=== PATIENT | female | born 1940 | race Caucasian/White ===

== ENCOUNTER 2019-01-24 18:54 | Emergency (ER) | payer MEDICARE ==
[~2019-01-24] VITALS: Ht 147.3 cm; Wt 36.3 kg
[2019-01-24] MEDS ORDERED: IV RINGERS SOLUTION,LACTATED 1,000 ML IV SCH (19:05)
--- NOTE | 2019-01-24 19:05 | ED.ADGEN ---
Past History Past Medical History: Cancer, COPD Past Surgical History: Colectomy, Other Smoking: Cigarettes Adult General Chief Complaint Chief Complaint ".. I ve been sick for about a week.. probably got it from my son.. he's been hacking.. but I do smoke.. and I have anal cancer...and just started IV chemo therapy a little over a week ago.. maybe two weeks.. .. I failed radiation and surgery.. I see Dr. Hudson.. and I seen them today.. the gave me Iron IV and did a chest x-ray.. .. Office called juliette and said it looked like pneumonia... and said go to Emergency Room...." HPI HPI Patient is a 78 year old female who presents with above hx and complaints of increased dyspnea with cough. Patient has been exposed to son who has been sick with a respiratory infection for the past week. Patient has noted in the past week she's had increased cough with sputum production. Patient does smoke. Patient recently completed a course of chemotherapy for her anal cancer 2 weeks ago. . Patient seen in office today and did have a chest x-ray which reportedly shows possible pneumonia . The patient was called and advised to go to the emergency department Pt. does continue to smoke and hx of COPD. Pt. does not use oxygen. . Patient denies any travel. Patient diagnosis of renal cancer approximately 2 years ago. Has undergone radiation, surgery, and now chemotherapy. Patient follows with [facility], Dr. Prabhakar surgery, Dr. Sutherland maintenance. Review of Systems Review of Systems Constitutional: Denies fever or chills [] Eyes: Denies change in visual acuity, redness, or eye pain [] HENT: Denies nasal congestion or sore throat [] Respiratory:Complaints of cough and shortness of breath [] Cardiovascular: No additional information not addressed in HPI [] GI: Denies abdominal pain, nausea, vomiting, bloody stools or diarrhea [] : Denies dysuria or hematuria [] Musculoskeletal: Denies back pain or joint pain [] Integument: Denies rash or skin lesions [] Neurologic: Denies headache, focal weakness or sensory changes [] Endocrine: Denies polyuria or polydipsia [] All other systems were reviewed and found to be within normal limits, except as documented in this note. Family History Family History Non-contributory Current Medications Current Medications Current Medications Medications (Trade) Dose Ordered Sig/Nataly Start Time Stop Time Status Last Admin Dose Admin Albuterol/ Ipratropium (Duoneb) 3 ml 1X ONCE 01/24/19 19:15 01/24/19 19:17 DC 01/24/19 20:12 3 ML Aspirin (Children'S Aspirin) 324 mg 1X ONCE 01/24/19 19:15 01/24/19 19:17 DC 01/24/19 19:34 324 MG Azithromycin (Zithromax) 500 mg STK-MED ONCE 01/24/19 19:36 01/24/19 19:37 DC Azithromycin 500 mg/Sodium Chloride 250 ml @ 250 mls/hr 1X ONCE 01/24/19 19:30 01/24/19 20:29 DC 01/24/19 19:40 250 MLS/HR Ceftriaxone Sodium 1 gm/ Sodium Chloride 50 ml @ 100 mls/hr 1X ONCE 01/24/19 19:30 01/24/19 19:59 DC 01/24/19 19:35 100 MLS/HR Ceftriaxone Sodium (Rocephin) 1 gm STK-MED ONCE 01/24/19 19:23 01/24/19 19:24 DC Erythromycin (Romycin) 0.25 inch 1X ONCE 01/25/19 05:15 01/25/19 05:16 DC 01/24/19 23:30 0.25 INCH Heparin Sodium (Porcine) (Heparin Sodium) 1,000 unit PRN Q6HRS PRN 01/24/19 20:45 01/25/19 00:06 DC Heparin Sodium/ Dextrose 500 ml @ 0 mls/hr CONT PRN 01/24/19 20:45 01/25/19 00:06 DC 01/24/19 22:55 12.8 MLS/HR Iohexol (Omnipaque 350 Mg/ml) 100 ml 1X ONCE 01/24/19 21:45 01/24/19 21:46 DC 01/24/19 22:24 100 ML Ketamine HCl 250 mg 1X ONCE 01/25/19 05:15 01/25/19 05:16 DC 01/24/19 23:50 250 MG Lactated Ringer's 1,000 ml @ 1,000 mls/hr 1X ONCE 01/24/19 21:45 01/24/19 22:44 DC 01/24/19 22:00 1,000 MLS/HR Lorazepam (Ativan Inj) 1 mg 1X ONCE 01/24/19 20:30 01/24/19 20:31 DC 01/24/19 20:25 1 MG Methylprednisolone Sodium Succinate (SOLU-Medrol 125MG VIAL) 125 mg 1X ONCE 01/24/19 19:30 01/24/19 19:31 DC 01/24/19 19:35 125 MG Midazolam HCl (Versed) 5 mg 1X ONCE 01/24/19 21:45 01/24/19 21:46 DC 01/24/19 20:47 5 MG Morphine Sulfate (Morphine 2mg Syringe) 2 mg 1X ONCE 01/24/19 20:30 01/24/19 20:30 DC 01/24/19 20:26 2 MG Morphine Sulfate (Morphine 4mg Syringe) 2 mg 1X ONCE 01/24/19 20:30 01/24/19 20:31 DC Norepinephrine Bitartrate (Levophed) 4 mg STK-MED ONCE 01/24/19 21:45 01/24/19 21:46 DC Norepinephrine Bitartrate 8 mg/ Sodium Chloride 258 ml @ 1.93 mls/hr CONT PRN 01/24/19 22:00 01/25/19 00:06 DC 01/24/19 21:55 3.87 MLS/HR Ondansetron HCl (Zofran) 4 mg 1X ONCE 01/24/19 20:15 01/24/19 20:21 DC 01/24/19 20:14 4 MG Propofol 50 ml @ 0 mls/hr 1X ONCE 01/24/19 22:00 01/24/19 22:04 DC 01/24/19 20:59 2.4 MLS/HR Sodium Chloride 250 ml @ As Directed STK-MED ONCE 01/24/19 21:44 01/24/19 21:45 DC Succinylcholine Chloride (Anectine) 100 mg 1X ONCE 01/24/19 21:30 01/24/19 21:33 DC 01/24/19 20:52 100 MG Vancomycin HCl (Vancomycin) 1 gm STK-MED ONCE 01/24/19 19:36 01/24/19 19:37 DC Vancomycin HCl 1 gm/Sodium Chloride 250 ml @ 250 mls/hr 1X ONCE 01/24/19 19:30 01/24/19 20:29 DC 01/24/19 19:40 250 MLS/HR Allergies Allergies Allergies Coded Allergies Type Severity Reaction Last Updated Verified No Known Drug Allergies 01/24/19 No Physical Exam Physical Exam Constitutional: in acute distress, ill in appearance. [] HENT: Normocephalic, atraumatic, bilateral external ears normal, oropharynx moist, no oral exudates, nose normal. [] Eyes: PERRLA, EOMI, conjunctiva normal, no discharge. [] Neck: Normal range of motion, no tenderness, supple, no stridor. [] Cardiovascular:Tachycardia Heart rate regular rhythm, no murmur [] Lungs & Thorax: Bilateral breath sounds equal apexes with scattered wheezes and rhonchi on auscultation [] Old port on Lt. ant. chest wall. Abdomen: Bowel sounds normal, soft, no tenderness, no masses, no pulsatile masses. Old scars. Skin: Warm, dry, no erythema, no rash. Poor turgor. Back: No tenderness, no CVA tenderness. [] Extremities: No tenderness, no cyanosis, no clubbing, ROM intact, no edema. No obvious cording. Arthritic changes. Neurologic: Alert and oriented X 3, moves all ext. and has distal sensory function, no gross focal deficits noted. [] Psychologic: Affect anxious, judgement normal, mood normal. [] Current Patient Data Vital Signs Vital Signs Date Time Temp Pulse Resp B/P (MAP) Pulse Ox O2 Delivery O2 Flow Rate FiO2 01/24/19 23:30 80 18 107/62 (77) 98 Ventilator 01/24/19 20:31 15.0 01/24/19 19:00 100.2 Lab Results Laboratory Tests Test 01/24/19 19:05 01/24/19 19:10 01/24/19 19:17 Urine Collection Type Unknown Urine Color Heather Urine Clarity Hazy Urine pH 7.0 Urine Specific Boone 1.015 Urine Protein 30 mg/dl (NEG-TRACE) Urine Glucose (UA) Neg mg/dL (NEG) Urine Ketones (Stick) Neg mg/dL (NEG) Urine Blood Neg (NEG) Urine Nitrite Neg (NEG) Urine Bilirubin Neg (NEG) Urine Urobilinogen Dipstick 0.2 mg/dL (0.2 mg/dL) Urine Leukocyte Esterase Neg (NEG) Urine RBC 0 /HPF (0-2) Urine WBC 0 /HPF (0-4) Urine Squamous Epithelial Cells Occ /LPF Urine Bacteria 0 /HPF (0-FEW) Urine Hyaline Casts Occ /HPF Urine Mucus Slight /LPF White Blood Count 3.2 x10^3/uL (4.0-11.0) L Red Blood Count 3.07 x10^6/uL (3.50-5.40) L Hemoglobin 7.4 g/dL (12.0-15.5) L Hematocrit 23.3 % (36.0-47.0) L Mean Corpuscular Volume 76 fL (79-100) L Mean Corpuscular Hemoglobin 24 pg (25-35) L Mean Corpuscular Hemoglobin Concent 32 g/dL (31-37) Red Cell Distribution Width 19.6 % (11.5-14.5) H Platelet Count 339 x10^3/uL (140-400) Neutrophils (%) (Auto) % (31-73) Lymphocytes (%) (Auto) % (24-48) Monocytes (%) (Auto) % (0-9) Eosinophils (%) (Auto) % (0-3) Basophils (%) (Auto) % (0-3) Neutrophils # (Auto) x10^3uL (1.8-7.7) Lymphocytes # (Auto) x10^3/uL (1.0-4.8) Monocytes # (Auto) x10^3/uL (0.0-1.1) Eosinophils # (Auto) x10^3/uL (0.0-0.7) Basophils # (Auto) x10^3/uL (0.0-0.2) Segmented Neutrophils % 80 % (35-66) H Band Neutrophils % 1 % (0-9) Lymphocytes % 13 % (24-48) L Monocytes % 3 % (0-10) Eosinophils % 1 % (0-5) Basophils % 2 % (0-3) Platelet Estimate Adequate (ADEQUATE) Polychromasia Slight Hypochromasia Mod Anisocytosis Slight Target Cells Occ Prothrombin Time 11.4 SEC (9.4-11.4) Prothrombin Time INR 1.2 (0.9-1.1) H PTT 31 SEC (23-33) D-Dimer (Paola) 1.16 mg/L (0.00-0.50) H Sodium Level 137 mmol/L (136-145) Potassium Level 3.4 mmol/L (3.5-5.1) L Chloride Level 99 mmol/L (98-107) Carbon Dioxide Level 30 mmol/L (21-32) Anion Gap 8 (6-14) Blood Urea Nitrogen 14 mg/dL (7-20) Creatinine 0.6 mg/dL (0.6-1.0) Estimated GFR (Cockcroft-Gault) 97.2 Glucose Level 112 mg/dL (70-99) H Calcium Level 8.3 mg/dL (8.5-10.1) L Magnesium Level 1.7 mg/dL (1.8-2.4) L Total Bilirubin 0.3 mg/dL (0.2-1.0) Direct Bilirubin 0.1 mg/dL (0.0-0.2) Aspartate Amino Transferase (AST) 23 U/L (15-37) Alanine Aminotransferase (ALT) 20 U/L (14-59) Alkaline Phosphatase 178 U/L (46-116) H Creatine Kinase 39 U/L (26-192) Troponin I Quantitative < 0.017 ng/mL (0-0.055) OC-Mmx-E-Type Natriuretic Peptide 986 pg/mL (0-449) H Total Protein 7.2 g/dL (6.4-8.2) Albumin 2.5 g/dL (3.4-5.0) L Lipase 39 U/L (73-393) L Blood pH 7.44 (7.35-7.45) Blood Gas PCO2 35 mmHg (35-45) Blood Gas PO2 57 mmHg (71-100) L Blood Gas HCO3 24 mmol/L (22-26) Arterial Bld O2 Saturation (Calc) 89 % (92-99) L FiO2 28 % EKG EKG My interpretation EKG shows a sinus tachycardia 1 bpm. There is leftward axis. There bimodal P-wave's. Does have findings of LVH. There is a strain pattern. No findings acute STEMI of contralateral changes. There is baseline artifact and V3.[] Radiology/Procedures Radiology/Procedures My interpretation of early chest x-ray shows hilar adenopathy. COPD changes. Bilateral pleural effusions. Cardiomegaly with some mild cephalization Has findings of left port. My interpretation of chest x-ray tonight she shows COPD, borderline cardiac silhouette, increased cephalization, bilateral pleural effusions, left port. Right IJ central line , no pneumothorax. ET in trachea. Bilateral pleural effusions. Perihilar infiltrates and adenopathy. See formal report when available [][address] [address] IMAGING REPORT Signed PATIENT: PETRONA FANG ACCOUNT: [id number] : 1940 LOCATION: ER AGE: 78 SEX: F EXAM STATUS: REG ER ORD. PHYSICIAN: MORALES KLINE MD REASON: Dyspnea, hypoxia, pleuretic, hx ca PROCEDURE: CT ANGIOGRAPHY CHEST CTA scan of the Chest with Contrast (Pulmonary Embolism protocol) 01/24/2019 Clinical History: Shortness of breath. Hypoxia. Technique: After the intravenous administration of 90 cc of Omnipaque 300, contiguous, 0.625 mm axial sections were obtained through the chest. 3 mm axial and 3D MIP coronal and sagittal reconstructed images were obtained. Findings: Comparison is made to a portable chest radiograph performed earlier today. The ET tube, NG tube, right internal jugular central venous catheter and left subclavian Kukdvu-i-Nxsu type catheter are unchanged position. No filling defect is seen within the major branches of either pulmonary artery. There is no CT evidence of pulmonary embolism. The heart is mildly enlarged. Atherosclerotic calcification of the thoracic aorta is seen. The thoracic aorta is tortuous but tapers normally. There are small bilateral pleural effusions, left greater than right. Perihilar infiltrates are seen scattered throughout both lungs. No pneumothorax is seen. Impression: There is no CT evidence of pulmonary embolism. Electronically signed by: Niall Owen MD (01/24/2019 11:33 PM) [facility] DICTATED AND SIGNED BY: NILAL OWEN MD DATE: 01/24/19 0788 CC: MORALES KLINE MD; JIMMIE FERNANDEZ MD ~ Course & Med Decision Making Course & Med Decision Making Pertinent Labs and Imaging studies reviewed. (See chart for details) . Procedure Note: Intubation- Mallampati score II. The patient unable to tolerate nasal cannula or oxygen via mask. Patient refused BiPAP. Patient did agree to intubation if she was sedated. Patient given for schooling 100, Versed. 5 mg, and there were then used for sedation. Use of videoscope placed a 7.0 ET at 22 cm,. Patient had increased sats immediately. Has CO2 change. Patient started on 100% and Titrating volume for pressures. PEEP 6. OG replaced with return gastric material. Procedure note: Central line placement- need for multiple ports and pressure meds- right subclavian and neck prepped with Betadine. Sterile drape. Down's mask and gloves. Inserted right IJ line by Seldinger technique. Return of blood from all 3 ports. Postinjection shows adequate placement. OpSite and Bio patch placed. Discussed presentation, testing and tx. plan with Dr. Garcia- he will accept pt in transfer to [facility] 2000 hrs. Still awaiting bed assignment [facility] 2230 Pt. left ED aprox 0015 . Critical care time 90 minutes not counting procedures. [] Final Impression Final Impression 1. Dyspnea[]-Respiratory Failure-Hypoxia 2. Anal Cancer- Dx 2 yrs, Radiation, Surgery and now Chemotherapy (Chemo Tx 2 weeks ago) 3. COPD 4. Pneumonia 5. Anemia -Hgb 7.4, with microcytic hypochromic indices. 6. Leukopenia 3.2 7. Mild hypo-kalemia 3/4 8. Hypo-magnesium 1.7 9. CHF-diastolic dysfunction BNP 986 10. Malnutrition Alb. 2.5 11. Elevated D-dimer 1.16 Dragon Disclaimer Dragon Disclaimer This electronic medical record was generated, in whole or in part, using a voice recognition dictation system. Discharge Summary Visit Information Final Diagnosis Problems Medical Problems: (1) Dyspnea Status: Acute (2) Respiratory failure Status: Acute Brief Hospital Course Allergies Allergies Coded Allergies Type Severity Reaction Last Updated Verified No Known Drug Allergies 01/24/19 No Vital Signs Vital Signs Date Time Temp Pulse Resp B/P (MAP) Pulse Ox O2 Delivery O2 Flow Rate FiO2 01/24/19 23:30 80 18 107/62 (77) 98 Ventilator 01/24/19 20:31 15.0 01/24/19 19:00 100.2 Lab Results Laboratory Tests Test 01/24/19 19:05 01/24/19 19:10 01/24/19 19:17 Urine Collection Type Unknown Urine Color Heather Urine Clarity Hazy Urine pH 7.0 Urine Specific Boone 1.015 Urine Protein 30 mg/dl (NEG-TRACE) Urine Glucose (UA) Neg mg/dL (NEG) Urine Ketones (Stick) Neg mg/dL (NEG) Urine Blood Neg (NEG) Urine Nitrite Neg (NEG) Urine Bilirubin Neg (NEG) Urine Urobilinogen Dipstick 0.2 mg/dL (0.2 mg/dL) Urine Leukocyte Esterase Neg (NEG) Urine RBC 0 /HPF (0-2) Urine WBC 0 /HPF (0-4) Urine Squamous Epithelial Cells Occ /LPF Urine Bacteria 0 /HPF (0-FEW) Urine Hyaline Casts Occ /HPF Urine Mucus Slight /LPF White Blood Count 3.2 x10^3/uL (4.0-11.0) Red Blood Count 3.07 x10^6/uL (3.50-5.40) Hemoglobin 7.4 g/dL (12.0-15.5) Hematocrit 23.3 % (36.0-47.0) Mean Corpuscular Volume 76 fL (79-100) Mean Corpuscular Hemoglobin 24 pg (25-35) Mean Corpuscular Hemoglobin Concent 32 g/dL (31-37) Red Cell Distribution Width 19.6 % (11.5-14.5) Platelet Count 339 x10^3/uL (140-400) Neutrophils (%) (Auto) % (31-73) Lymphocytes (%) (Auto) % (24-48) Monocytes (%) (Auto) % (0-9) Eosinophils (%) (Auto) % (0-3) Basophils (%) (Auto) % (0-3) Neutrophils # (Auto) x10^3uL (1.8-7.7) Lymphocytes # (Auto) x10^3/uL (1.0-4.8) Monocytes # (Auto) x10^3/uL (0.0-1.1) Eosinophils # (Auto) x10^3/uL (0.0-0.7) Basophils # (Auto) x10^3/uL (0.0-0.2) Segmented Neutrophils % 80 % (35-66) Band Neutrophils % 1 % (0-9) Lymphocytes % 13 % (24-48) Monocytes % 3 % (0-10) Eosinophils % 1 % (0-5) Basophils % 2 % (0-3) Platelet Estimate Adequate (ADEQUATE) Polychromasia Slight Hypochromasia Mod Anisocytosis Slight Target Cells Occ Prothrombin Time 11.4 SEC (9.4-11.4) Prothromb Time International Ratio 1.2 (0.9-1.1) Activated Partial Thromboplast Time 31 SEC (23-33) D-Dimer (Paola) 1.16 mg/L (0.00-0.50) Sodium Level 137 mmol/L (136-145) Potassium Level 3.4 mmol/L (3.5-5.1) Chloride Level 99 mmol/L (98-107) Carbon Dioxide Level 30 mmol/L (21-32) Anion Gap 8 (6-14) Blood Urea Nitrogen 14 mg/dL (7-20) Creatinine 0.6 mg/dL (0.6-1.0) Estimated GFR (Cockcroft-Gault) 97.2 Glucose Level 112 mg/dL (70-99) Calcium Level 8.3 mg/dL (8.5-10.1) Magnesium Level 1.7 mg/dL (1.8-2.4) Total Bilirubin 0.3 mg/dL (0.2-1.0) Direct Bilirubin 0.1 mg/dL (0.0-0.2) Aspartate Amino Transf (AST/SGOT) 23 U/L (15-37) Alanine Aminotransferase (ALT/SGPT) 20 U/L (14-59) Alkaline Phosphatase 178 U/L (46-116) Creatine Kinase 39 U/L (26-192) Troponin I Quantitative < 0.017 ng/mL (0-0.055) TE-Dva-S-Type Natriuretic Peptide 986 pg/mL (0-449) Total Protein 7.2 g/dL (6.4-8.2) Albumin 2.5 g/dL (3.4-5.0) Lipase 39 U/L (73-393) Blood Gas pH 7.44 (7.35-7.45) Blood Gas PCO2 35 mmHg (35-45) Blood Gas PO2 57 mmHg (71-100) Blood Gas HCO3 24 mmol/L (22-26) Arterial Bld O2 Saturation (Calc) 89 % (92-99) FiO2 28 % Brief Hospital Course Ms. Fang is a 78 old female who presented with acute hypoxic respiratory failure- Transfer to [facility]- Dr. Garcia. Discharge Information Condition at Discharge: Improved Disposition/Orders: D/C to Another Facility Dischare Medications Current Medications Aspirin (Children'S Aspirin) 324 mg 1X ONCE PO Last administered on 01/24/19at 19:34; Admin Dose 324 MG; Start 01/24/19 at 19:15; Stop 01/24/19 at 19:17; Status DC Lactated Ringer's 1,000 ml @ 100 mls/hr Q10H IV Last administered on 01/24/19at 21:37; Admin Dose 100 MLS/HR; Start 01/24/19 at 19:05; Stop 01/25/19 at 00:06; Status DC Albuterol/ Ipratropium (Duoneb) 3 ml 1X ONCE NEB Last administered on 01/24/19at 20:12; Admin Dose 3 ML; Start 01/24/19 at 19:15; Stop 01/24/19 at 19:17; Status DC Methylprednisolone Sodium Succinate (SOLU-Medrol 125MG VIAL) 125 mg 1X ONCE IV Last administered on 01/24/19at 19:35; Admin Dose 125 MG; Start 01/24/19 at 19:30; Stop 01/24/19 at 19:31; Status DC Ceftriaxone Sodium 1 gm/ Sodium Chloride 50 ml @ 100 mls/hr 1X ONCE IV Last administered on 01/24/19at 19:35; Admin Dose 100 MLS/HR; Start 01/24/19 at 19:30; Stop 01/24/19 at 19:59; Status DC Azithromycin 500 mg/Sodium Chloride 250 ml @ 250 mls/hr 1X ONCE IV Last administered on 01/24/19at 19:40; Admin Dose 250 MLS/HR; Start 01/24/19 at 19:30; Stop 01/24/19 at 20:29; Status DC Lactated Ringer's 1,000 ml @ 1,000 mls/hr 1X ONCE IV Last administered on 01/24/19at 19:34; Admin Dose 1,000 MLS/HR; Start 01/24/19 at 19:30; Stop 01/24/19 at 20:29; Status DC Vancomycin HCl 1 gm/Sodium Chloride 250 ml @ 250 mls/hr 1X ONCE IV Last administered on 01/24/19at 19:40; Admin Dose 250 MLS/HR; Start 01/24/19 at 19:30; Stop 01/24/19 at 20:29; Status DC Ceftriaxone Sodium (Rocephin) 1 gm STK-MED ONCE .ROUTE ; Start 01/24/19 at 19:23; Stop 01/24/19 at 19:24; Status DC Sodium Chloride 250 ml @ As Directed STK-MED ONCE .ROUTE ; Start 01/24/19 at 19:36; Stop 01/24/19 at 19:37; Status DC Azithromycin (Zithromax) 500 mg STK-MED ONCE IV ; Start 01/24/19 at 19:36; Stop 01/24/19 at 19:37; Status DC Sodium Chloride 250 ml @ As Directed STK-MED ONCE .ROUTE ; Start 01/24/19 at 19:36; Stop 01/24/19 at 19:37; Status DC Vancomycin HCl (Vancomycin) 1 gm STK-MED ONCE .ROUTE ; Start 01/24/19 at 19:36; Stop 01/24/19 at 19:37; Status DC Ondansetron HCl (Zofran) 4 mg 1X ONCE IV Last administered on 01/24/19at 20:14; Admin Dose 4 MG; Start 01/24/19 at 20:15; Stop 01/24/19 at 20:21; Status DC Lorazepam (Ativan Inj) 2 mg STK-MED ONCE .ROUTE ; Start 01/24/19 at 20:15; Stop 01/24/19 at 20:16; Status DC Lorazepam (Ativan Inj) 1 mg 1X ONCE IV ; Start 01/24/19 at 20:30; Stop 01/24/19 at 20:31; Status DC Heparin Sodium (Porcine) (Heparin Sodium) 4,000 unit 1X ONCE IV Last administered on 01/24/19at 20:29; Admin Dose 4,000 UNIT; Start 01/24/19 at 20:30; Stop 01/24/19 at 20:32; Status DC Lorazepam (Ativan Inj) 1 mg 1X ONCE IV Last administered on 01/24/19at 20:25; Admin Dose 1 MG; Start 01/24/19 at 20:30; Stop 01/24/19 at 20:31; Status DC Morphine Sulfate (Morphine 2mg Syringe) 2 mg 1X ONCE IV Last administered on 01/24/19at 20:26; Admin Dose 2 MG; Start 01/24/19 at 20:30; Stop 01/24/19 at 20:30; Status DC Morphine Sulfate (Morphine 4mg Syringe) 4 mg STK-MED ONCE .ROUTE ; Start 01/24/19 at 20:22; Stop 01/24/19 at 20:23; Status DC Morphine Sulfate (Morphine 4mg Syringe) 2 mg 1X ONCE IV ; Start 01/24/19 at 20:30; Stop 01/24/19 at 20:31; Status DC Heparin Sodium (Porcine) (Heparin Sodium) 2,700 unit 1X ONCE IV ; Start 01/24/19 at 20:30; Stop 01/24/19 at 20:32; Status DC Heparin Sodium/ Dextrose 500 ml @ 0 mls/hr CONT PRN IV SEE I/O RECORD; Start 01/24/19 at 20:45; Stop 01/24/19 at 20:47; Status DC Heparin Sodium/ Dextrose 500 ml @ 0 mls/hr CONT PRN IV SEE I/O RECORD Last administered on 01/24/19at 22:55; Admin Dose 12.8 MLS/HR; Start 01/24/19 at 20:45; Stop 01/25/19 at 00:06; Status DC Heparin Sodium (Porcine) (Heparin Sodium) 2,000 unit PRN Q6HRS PRN IV FOLLOW PROTOCOL GUIDELINES; Start 01/24/19 at 20:45; Stop 01/25/19 at 00:06; Status DC Heparin Sodium (Porcine) (Heparin Sodium) 1,000 unit PRN Q6HRS PRN IV FOLLOW PROTOCOL GUIDELINES; Start 01/24/19 at 20:45; Stop 01/25/19 at 00:06; Status DC Propofol 100 ml @ As Directed STK-MED ONCE IV ; Start 01/24/19 at 20:46; Stop 01/24/19 at 20:47; Status DC Succinylcholine Chloride (Anectine) 200 mg STK-MED ONCE .ROUTE ; Start 01/24/19 at 20:47; Stop 01/24/19 at 20:48; Status DC Ketamine HCl 250 mg 1X ONCE IV Last administered on 01/24/19at 21:15; Admin Dose 250 MG; Start 01/24/19 at 21:30; Stop 01/24/19 at 21:33; Status DC Succinylcholine Chloride (Anectine) 100 mg 1X ONCE IV Last administered on 01/24/19at 20:52; Admin Dose 100 MG; Start 01/24/19 at 21:30; Stop 01/24/19 at 21:33; Status DC Midazolam HCl (Versed) 5 mg 1X ONCE IV Last administered on 01/24/19at 20:47; Admin Dose 5 MG; Start 01/24/19 at 21:45; Stop 01/24/19 at 21:46; Status DC Iohexol (Omnipaque 350 Mg/ml) 100 ml 1X ONCE IV Last administered on 01/24/19at 22:24; Admin Dose 100 ML; Start 01/24/19 at 21:45; Stop 01/24/19 at 21:46; Status DC Lactated Ringer's 1,000 ml @ 1,000 mls/hr 1X ONCE IV Last administered on 01/24/19at 22:00; Admin Dose 1,000 MLS/HR; Start 01/24/19 at 21:45; Stop 01/24/19 at 22:44; Status DC Norepinephrine Bitartrate (Levophed) 4 mg STK-MED ONCE IV ; Start 01/24/19 at 21:41; Stop 01/24/19 at 21:42; Status DC Sodium Chloride 250 ml @ As Directed STK-MED ONCE .ROUTE ; Start 01/24/19 at 21:44; Stop 01/24/19 at 21:45; Status DC Norepinephrine Bitartrate (Levophed) 4 mg STK-MED ONCE IV ; Start 01/24/19 at 21:45; Stop 01/24/19 at 21:46; Status DC Propofol 50 ml @ 0 mls/hr 1X ONCE IV Last administered on 01/24/19at 20:59; Admin Dose 2.4 MLS/HR; Start 01/24/19 at 22:00; Stop 01/24/19 at 22:04; Status DC Norepinephrine Bitartrate 8 mg/ Sodium Chloride 258 ml @ 1.93 mls/hr CONT PRN IV SEE I/O RECORD Last administered on 01/24/19at 21:55; Admin Dose 3.87 MLS/HR; Start 01/24/19 at 22:00; Stop 01/25/19 at 00:06; Status DC Erythromycin (Romycin) 0.25 inch 1X ONCE OU ; Start 01/25/19 at 00:15; Stop 01/25/19 at 00:15; Status DC Erythromycin (Romycin) 1 inch STK-MED ONCE .ROUTE ; Start 01/25/19 at 00:00; Stop 01/25/19 at 00:02; Status DC Ketamine HCl 250 mg 1X ONCE IV Last administered on 01/24/19at 23:50; Admin Dose 250 MG; Start 01/25/19 at 05:15; Stop 01/25/19 at 05:16; Status DC Erythromycin (Romycin) 0.25 inch 1X ONCE OU Last administered on 01/24/19at 23:30; Admin Dose 0.25 INCH; Start 01/25/19 at 05:15; Stop 01/25/19 at 05:16; Status DC Dragon Disclaimer This chart was dictated in whole or in part using Voice Recognition software in a busy, high-work load, and often noisy Emergency Department environment. It may contain unintended and wholly unrecognized errors or omissions. MORALES KLINE MD January 24, 2019 19:05
[2019-01-24] MEDS ORDERED: ASPIRIN 81 MG TAB.CHEW PO ONE (19:15)
[2019-01-24] MEDS ORDERED: IPRATRPIUM/ALBUTEROL 0.5/2.5MG 3 ML NEBU. NEB ONE (19:15)
[2019-01-24] MEDS ORDERED: cefTRIAXone SODIUM 1 GM VIAL ONE (19:23)
[2019-01-24] MEDS ORDERED: AZITHROMYCIN 500 MG in IV NORMAL SALINE 250ML 250 ML IV ONE (19:30)
[2019-01-24] MEDS ORDERED: methylPREDNISolone SOD SUCC PF 125 MG/2 ML VIAL. IV ONE (19:30)
[2019-01-24] MEDS ORDERED: IV RINGERS SOLUTION,LACTATED 1,000 ML IV ONE ×2 (19:30→21:45)
[2019-01-24] MEDS ORDERED: VANCOMYCIN 1 GM in IV NORMAL SALINE 250ML 250 ML IV ONE (19:30)
[2019-01-24] MEDS ORDERED: IV NORMAL SALINE 250ML 250 ML ONE ×3 (19:36→21:44)
[2019-01-24] MEDS ORDERED: VANCOMYCIN 1 GM VIAL. ONE (19:36)
[2019-01-24] MEDS ORDERED: AZITHROMYCIN 500 MG VIAL. IV ONE (19:36)
[2019-01-24 19:37] LABS: CLARITY,URINE HAZY; COLOR,URINE AMBER
[2019-01-24 19:38] LABS: BACTERIA,URINE 0 /HPF (0-FEW); BILIRUBIN,URINE NEG (NEG); GLUCOSE,URINE NEG (NEG); HYALINE CASTS, URINE OCC /HPF; NITRITE,URINE NEG (NEG); RBC,URINE 0 /HPF (0-2); SQUAMOUS EPITHELIAL CELL,UR OCC /LPF; UROBILINOGEN,URINE 0.2 mg/dL (0.2 mg/dL); WBC,URINE 0 /HPF (0-4)
[2019-01-24 19:39] LABS: HEMATOCRIT 23.3 % (36.0-47.0); HEMOGLOBIN 7.4 g/dL (12.0-15.5); MEAN CORPUSCULAR HEMOGLOBIN 24 pg (25-35); MEAN CORPUSCULAR HGB CONC 32 g/dL (31-37); MEAN CORPUSCULAR VOLUME 76 fL (79-100); PLATELET COUNT 339 x10^3/uL (140-400); RED BLOOD COUNT 3.07 x10^6/uL (3.50-5.40); RED CELL DISTRIBUTION WIDTH 19.6 % (11.5-14.5); WHITE BLOOD COUNT 3.2 x10^3/uL (4.0-11.0)
--- NOTE | 2019-01-24 19:48 | EKG ---
[address] [address] Test Date: 2019-01-24 Test Time: 19:24:09 Pat Name: PETRONA FANG Department: Room: Gender: F [employer]: : [id number] Requested By: MORALES KLINE Order Number: [id number] Reading MD: Measurements Intervals Delta Rate: 101 P: 75 MI: 118 QRS: -26 QRSD: 78 T: 74 QT: 320 QTc: 416 Interpretive Statements SINUS TACHYCARDIA LEFT ATRIAL ABNORMALITY LEFTWARD AXIS CONSIDER LEFT VENTRICULAR HYPERTROPHY QRS(T) CONTOUR ABNORMALITY CONSIDER ANTEROSEPTAL MYOCARDIAL DAMAGE T ABNORMALITY IN HIGH LATERAL LEADS ABNORMAL ECG RI6.01 No previous ECG available for comparison
[2019-01-24 19:49] LABS: BGAS PH 7.44 (7.35-7.45)
[2019-01-24 19:58] LABS: ALBUMIN 2.5 g/dL (3.4-5.0); CALCIUM 8.3 mg/dL (8.5-10.1); CREATININE 0.6 mg/dL (0.6-1.0); DIRECT BILIRUBIN 0.1 mg/dL (0.0-0.2); GFR 97.2; MAGNESIUM 1.7 mg/dL (1.8-2.4); POTASSIUM 3.4 mmol/L (3.5-5.1); TOTAL BILIRUBIN 0.3 mg/dL (0.2-1.0); TOTAL PROTEIN 7.2 g/dL (6.4-8.2)
[2019-01-24] MEDS ORDERED: ONDANSETRON PF 4 MG/2 ML VIAL. IV ONE (20:15)
[2019-01-24] MEDS ORDERED: MORPHINE SULFATE 4 MG/ML DISP.SYRIN. ONE (20:22)
[2019-01-24] MEDS ORDERED: HEPARIN for IV BOLUS 10,000 UNIT/10 ML VIAL. IV ONE ×2 (20:30)
[2019-01-24] MEDS ORDERED: MORPHINE SULFATE 2 MG/ML DISP.SYRIN. IV ONE (20:30)
[2019-01-24] MEDS ORDERED: MORPHINE SULFATE 4 MG/ML DISP.SYRIN. IV ONE (20:30)
[2019-01-24 20:40] LABS: % BANDS 1 % (0-9); % BASOS 2 % (0-3); % EOS 1 % (0-5); % LYMPHS 13 % (24-48); % MONOS 3 % (0-10); % SEGS 80 % (35-66)
[2019-01-24 20:41] LABS: ANISOCYTOSIS SLIGHT; HYPOCHROMIA MOD; PLT ESTIMATE ADEQUATE (ADEQUATE); POLYCHROMASIA SLIGHT; TARGET CELLS OCC
[2019-01-24] MEDS ORDERED: HEPARIN 25,000UTS/500ML PREMIX 500 ML IV PRN ×2 (20:45)
[2019-01-24] MEDS ORDERED: HEPARIN for IV BOLUS 10,000 UNIT/10 ML VIAL. IV PRN ×2 (20:45)
[2019-01-24] MEDS ORDERED: PROPOFOL 100 ML IV ONE (20:46)
[2019-01-24] MEDS ORDERED: SUCCINYLCHOLINE 200 MG/10 ML VIAL. ONE (20:47)
[2019-01-24] MEDS ORDERED: MIDAZOLAM HCL PF 5 MG/5 ML VIAL. ONE (21:00)
[2019-01-24] MEDS ORDERED: KETAMINE HCL 500 MG/10 ML VIAL. ONE (21:00)
[2019-01-24] MEDS ORDERED: PROPOFOL 10,000 MCG/ML (20ML) VIAL IV ONE (21:00)
[2019-01-24] MEDS ORDERED: SUCCINYLCHOLINE 200 MG/10 ML VIAL. IV ONE (21:30)
[2019-01-24] MEDS ORDERED: KETAMINE HCL 500 MG/10 ML VIAL. IV ONE (21:30)
[2019-01-24] MEDS ORDERED: NOREPINEPHRINE BITARTRATE 4 MG/4 ML VIAL. IV ONE ×2 (21:41→21:45)
[2019-01-24] MEDS ORDERED: MIDAZOLAM HCL PF 5 MG/5 ML VIAL. IV ONE (21:45)
[2019-01-24] MEDS ORDERED: IOHEXOL 350 MG/ML 100 ML VIAL. IV ONE (21:45)
[2019-01-24] MEDS ORDERED: NOREPINEPHRINE BITARTRATE 8 MG in IV NORMAL SALINE 250ML 250 ML IV PRN (22:00)
[2019-01-24] MEDS ORDERED: PROPOFOL 50 ML IV ONE (22:00)
[2019-01-24 23:30] VITALS: BP 107/62
--- NOTE | 2019-01-24 23:37 | RAD ---
CTA scan of the Chest with Contrast (Pulmonary Embolism protocol) 01/24/2019 Clinical History: Shortness of breath. Hypoxia. Technique: After the intravenous administration of 90 cc of Omnipaque 300, contiguous, 0.625 mm axial sections were obtained through the chest. 3 mm axial and 3D MIP coronal and sagittal reconstructed images were obtained. Findings: Comparison is made to a portable chest radiograph performed earlier today. The ET tube, NG tube, right internal jugular central venous catheter and left subclavian Bpxryz-j-Gwmt type catheter are unchanged position. No filling defect is seen within the major branches of either pulmonary artery. There is no CT evidence of pulmonary embolism. The heart is mildly enlarged. Atherosclerotic calcification of the thoracic aorta is seen. The thoracic aorta is tortuous but tapers normally. There are small bilateral pleural effusions, left greater than right. Perihilar infiltrates are seen scattered throughout both lungs. No pneumothorax is seen. Impression: There is no CT evidence of pulmonary embolism. Electronically signed by: Niall Owen MD (01/24/2019 11:33 PM) [facility]
[2019-01-25] MEDS ORDERED: ERYTHROMYCIN 0.5% OPHTH OINTMENT 1GM TUBE. ONE
[2019-01-25] MEDS ORDERED: ERYTHROMYCIN 0.5% OPHTH OINTMENT 1GM TUBE. OU ONE ×2 (00:15→05:15)
--- NOTE | 2019-01-25 01:06 | RAD ---
AP portable chest radiograph 01/24/2019 Clinical History: Post intubation and central line placement. An AP erect portable digital radiograph of the chest was obtained. An ET tube is been placed. The tip of this tube overlies the trachea 2 cm below the level of clavicles. A NG tube has been placed. The tip of this tube extends to overlie the gastric cardia. The side-port of the NG tube overlies the expected location of distal thoracic esophagus. A right internal jugular central venous catheter has been placed. The tip of this catheter extends to overlie the superior vena cava. A left subclavian Dusvco-k-Rgti type catheter is seen. The tip of this catheter extends to overlie the superior vena cava. The cardiac silhouette is borderline enlarged. The thoracic aorta is tortuous. Atherosclerotic calcification thoracic aorta is seen. Bilateral perihilar infiltrates are noted. No pneumothorax or pleural effusion is seen. Degenerative changes are seen involving the thoracic spine. IMPRESSION: Tube and line position as outlined above. No pneumothorax is seen. Electronically signed by: Niall Owen MD (01/25/2019 1:03 AM) [facility]
[2019-01-25] MEDS ORDERED: KETAMINE HCL 500 MG/10 ML VIAL. IV ONE (05:15)
[2019-01-25 07:32] LABS: BGAS PH 7.33 (7.35-7.45)
[2019-01-25 13:57] LABS: THYROID STIM HORMONE (TSH) 0.652 uIU/mL (0.358-3.740)
== END 2019-01-25 00:06 | disposition short-term general hospital (02) ==
LOC: ER 18:54
DX: J96.91 Respiratory failure, unspecified with hypoxia (principal); C21.0 Malignant neoplasm of anus, unspecified; J44.0 Chronic obstructive pulmonary disease with (acute) lower respiratory infection; J18.9 Pneumonia, unspecified organism; D50.9 Iron deficiency anemia, unspecified; D72.819 Decreased white blood cell count, unspecified; E87.6 Hypokalemia; E83.42 Hypomagnesemia; I50.30 Unspecified diastolic (congestive) heart failure; E46 Unspecified protein-calorie malnutrition; R79.1 Abnormal coagulation profile; F17.210 Nicotine dependence, cigarettes, uncomplicated; Z68.1 Body mass index [BMI] 19.9 or less, adult
CPT/HCPCS: 31500; 36415; 36556; 43762; 51702; 71045; 71275; 80048; 80061; 80076; 81001; 82550; 82803; 83690; 83735; 83880; 84443; 84484; 85007; 85025; 85379; 85610; 85730; 87040; 93005; 94640; 96365; 96366; 96368; 96375; 96376; 99291; 99292; J0330; J0456; J0696; J1644; J2060; J2250; J2270; J2405; J2704; J2930; J3370; J3490; J7050; J7120; J7620; Q9967; 94002

== ENCOUNTER 2019-03-19 15:37 | Inpatient (IN) | payer MEDICARE ==
[2019-03-19] VITALS (7 sets, daily range): BP systolic 104–120; BP diastolic 50–61
[~2019-03-19] VITALS: Ht 148.6 cm; Wt 35.1 kg
[2019-03-19 15:56] LABS: BASO % 0 % (0-3); EOS # 0.1 x10^3/uL (0.0-0.7); EOS % 0 % (0-3); HEMATOCRIT 23.7 % (36.0-47.0); HEMOGLOBIN 7.2 g/dL (12.0-15.5); LYMPH # 0.8 x10^3/uL (1.0-4.8); LYMPH % 4 % (24-48); MEAN CORPUSCULAR HEMOGLOBIN 28 pg (25-35); MEAN CORPUSCULAR HGB CONC 31 g/dL (31-37); MEAN CORPUSCULAR VOLUME 92 fL (79-100); MONO # 0.9 x10^3/uL (0.0-1.1); MONO % 5 % (0-9); NEUT # 17.4 x10^3uL (1.8-7.7); NEUT % 91 % (31-73); PLATELET COUNT 633 x10^3/uL (140-400); RED BLOOD COUNT 2.56 x10^6/uL (3.50-5.40); RED CELL DISTRIBUTION WIDTH 22.4 % (11.5-14.5); WHITE BLOOD COUNT 19.2 x10^3/uL (4.0-11.0)
[2019-03-19 16:19] LABS: BGAS PH 7.41 (7.35-7.45)
[2019-03-19 16:21] LABS: ALBUMIN 2.1 g/dL (3.4-5.0); ALBUMIN/GLOBULIN RATIO 0.5 (1.0-1.7); CALCIUM 8.9 mg/dL (8.5-10.1); CREATININE 1.1 mg/dL (0.6-1.0); GFR 48.2; POTASSIUM 3.8 mmol/L (3.5-5.1); TOTAL BILIRUBIN 0.4 mg/dL (0.2-1.0); TOTAL PROTEIN 6.6 g/dL (6.4-8.2)
[2019-03-19] MEDS ORDERED: ACETAMINOPHEN 325 MG TABLET PO PRN (17:00)
--- NOTE | 2019-03-19 17:00 | NUR ---
The patient, PETRONA FANG, 79 y/o, F admitted by DINO KAUR MD, was given written information regarding hospital policies, unit procedures and contact persons. Valuables were checked and left in room. Patient admitted to unit and able to make needs known. Labs, vitals and orders from Dr. Kaur obtained. Notified and updated physician of current status with new orders placed. Patient resting comfortably in bed at this time, denies complaints except for generalized pain 02/05. Pain medication continued. Patient T&S Obtained due to anemia. Will continue to monitor throughout shift.
--- NOTE | 2019-03-19 17:01 | NUR ---
Patient called nurse into room, patient was on the phone with her son and was yelling at son and asked to speak to nurse. Nurse spoke with son and was questioned as to " why the patient was admitted to the hospital and where she was, states that sometimes she does not make sense or knows what she is talking about" Nurse informed patient that she was a direct admission from [facility] and that he will have [facility] as to why she was admitted and why he was not informed of transfer to hospital.
--- NOTE | 2019-03-19 17:02 | RAD ---
EXAM: CHEST 1 VIEW History: Direct admission COMPARISON: 01/24/2019 TECHNIQUE: Single portable radiograph of the chest Findings/ impression: Minimal cardiomegaly. Left-sided Port-A-Cath is unchanged. The costophrenic sulci are clear and well demarcated. Mild prominent bilateral interstitial lung markings likely chronic interstitial changes again identified. Electronically signed by: Oscar Magana MD (03/19/2019 4:59 PM) [place] [id number]
[2019-03-19] MEDS ORDERED: ALPR0.5T PO (17:04)
[2019-03-19] MEDS ORDERED: DIPH25CA58 PO (17:04)
[2019-03-19] MEDS ORDERED: OXYC10TA PO (17:04)
[2019-03-19] MEDS ORDERED: POLY17PO5 PO (17:04)
[2019-03-19] MEDS ORDERED: OXYC10TA57 PO (17:04)
[2019-03-19] MEDS ORDERED: OXYB5TAB7 PO (17:04)
[2019-03-19] MEDS ORDERED: PANT40TA3 PO (17:04)
[2019-03-19] MEDS ORDERED: MIRT15TA PO (17:08)
[2019-03-19] MEDS ORDERED: BUPR100T7 PO (17:08)
[2019-03-19] MEDS ORDERED: BUSP5TAB PO (17:08)
[2019-03-19] MEDS ORDERED: LORA10TA3 PO (17:08)
[2019-03-19] MEDS ORDERED: ACET325T9 PO (17:08)
[2019-03-19 17:11] LABS: BILIRUBIN,URINE NEG (NEG); CLARITY,URINE TURBID; COLOR,URINE AMBER; GLUCOSE,URINE 100 mg/dL (NEG); NITRITE,URINE POS (NEG); UROBILINOGEN,URINE 2 mg/dL (0.2 mg/dL)
[2019-03-19 17:12] LABS: BACTERIA,URINE MOD /HPF (0-FEW); HYALINE CASTS, URINE OCC /HPF; SQUAMOUS EPITHELIAL CELL,UR MOD /LPF; WBC,URINE 20-40 /HPF (0-4)
[2019-03-19] MEDS ORDERED: PHEN100T82 PO (17:14)
[2019-03-19] MEDS ORDERED: NICO1PAT25 TP (17:14)
[2019-03-19] MEDS ORDERED: ASCO500C9 PO (17:14)
[2019-03-19] MEDS ORDERED: FERR325T14 PO (17:14)
[2019-03-19] MEDS ORDERED: MULT1POW2 PO (17:14)
[2019-03-19] MEDS ORDERED: IV NORMAL SALINE 1,000ML 1,000 ML IV SCH (17:15)
[2019-03-19] MEDS: POTASSIUM CL 20MEQ IN 0.9%NACL 1,000 ML IV SCH (17:55)
[2019-03-19] MEDS: oxyCODONE IR 5 MG TABLET PO PRN (17:55)
[2019-03-19 18:23] LABS: % BANDS 2 % (0-9); % EOS 1 % (0-5); % LYMPHS 6 % (24-48); % MONOS 3 % (0-10); % SEGS 88 % (35-66); PLT ESTIMATE INCREASED (ADEQUATE)
--- NOTE | 2019-03-19 18:23 | NUR ---
Dr. KAUR notified of sepsis screen and started on IVF and abt for uti.
[2019-03-19 18:24] LABS: ANISOCYTOSIS SLIGHT
[2019-03-19] MEDS: ALPRAZolam 0.5 MG TABLET PO PRN (19:45)
--- NOTE | 2019-03-19 20:10 | NUR ---
DRAINAGE BAG ON MACEDO CATHETER CHANGED AT THIS TIME. STILL DRAINING BRIGHT ORANGE URINE D/T HX OF PYRIDIUM MEDICATION. PATIENT IN STABLE CONDITION AND VSS. WILL CONTINUE TO MONITOR PATIENT.
[2019-03-19] MEDS: oxyCODONE ER 10 MG TAB.ER.12H PO SCH (21:56)
[2019-03-19] MEDS: MEROPENEM 1 GM in IV NORMAL SALINE 100ML 100 ML IV SCH (21:57)
[2019-03-20] VITALS (23 sets, daily range): BP systolic 102–144; BP diastolic 49–68
[2019-03-20] MEDS ORDERED: diphenhydrAMINE HCL 25 MG CAPSULE PO PRN (01:30)
[2019-03-20] MEDS: MEROPENEM 1 GM in IV NORMAL SALINE 100ML 100 ML IV SCH ×2 (05:30→21:01)
[2019-03-20] MEDS: oxyCODONE IR 5 MG TABLET PO PRN ×3 (05:30→22:12)
[2019-03-20] MEDS: POTASSIUM CL 20MEQ IN 0.9%NACL 1,000 ML IV SCH ×2 (06:27→21:00)
--- NOTE | 2019-03-20 07:16 | NUR ---
RENAL DOSING: meropenem 1gram q8hrs changed to 1gram q12hrs per pharmacy protocol, Crcl- 24ml/min, scr-1.1, will continue to monitor.
[2019-03-20 07:33] LABS: RED BLOOD COUNT 2.18 x10^6/uL (3.50-5.40); RED CELL DISTRIBUTION WIDTH 22.7 % (11.5-14.5); WHITE BLOOD COUNT 21.3 x10^3/uL (4.0-11.0)
[2019-03-20 07:39] LABS: HEMOGLOBIN 6.2 g/dL (12.0-15.5)
[2019-03-20 07:45] LABS: ALBUMIN 1.7 g/dL (3.4-5.0); ALBUMIN/GLOBULIN RATIO 0.4 (1.0-1.7); CALCIUM 8.1 mg/dL (8.5-10.1); CREATININE 1.1 mg/dL (0.6-1.0); GFR 48.2; POTASSIUM 3.7 mmol/L (3.5-5.1); TOTAL BILIRUBIN 0.4 mg/dL (0.2-1.0); TOTAL PROTEIN 6.3 g/dL (6.4-8.2)
--- NOTE | 2019-03-20 08:14 | NUR ---
Critical results notified to dr mccarthy, orders for 1 unit of prbc, patient states she is okay to have transfusion and just wants to feel better. Orders placed.
[2019-03-20] MEDS ORDERED: LACTOBACILLUS RHAMNOSUS GG 1 CAPSULE. PO SCH (09:00)
[2019-03-20] MEDS: oxyCODONE ER 10 MG TAB.ER.12H PO SCH ×2 (09:01→21:01)
--- NOTE | 2019-03-20 09:02 | NUR ---
Blood Transfusion started at 0833, tubing primed with NS and then primed with blood. Transfusion started at 75/hr, patient monitored closely x 15min. No reaction noted, transfusion increased to 125/hr
[2019-03-20 10:22] LABS: FECAL OB PT POSITIVE (NEG)
[2019-03-20] MEDS ORDERED: VANCOMYCIN 1 GM in IV NORMAL SALINE 250ML 250 ML IV ONE (10:30)
--- NOTE | 2019-03-20 12:43 | HP ---
ADMIT DATE: HISTORY OF PRESENT ILLNESS: The patient is a 79-year-old female patient, a resident at [facility], who was admitted directly as the nursing staff there stated that the patient was very lethargic, marked altered mental status. She was also noted to have leukocytosis with a white cell count of 19,000. She has not had any urine output according to them and therefore, the patient was admitted directly to the ICU for further evaluation and treatment. Repeat labs here show that her white cell count was indeed high at 19,000. Her hemoglobin was 7.2 and platelets were high at 633,000. However, surprisingly, her blood gases were within normal range. Her pH was 7.4, pCO2 of 34 and pO2 of 78. However, urinalysis showed the patient was positive for nitrite. There was large amount of leukocyte esterase, 20-40 wbc's, and moderate amount of bacteria. The patient was admitted with altered mental status, urinary tract infection, normochromic normocytic anemia and marked leukocytosis. She is allergic to PENICILLIN. She was started on meropenem IV. We actually sent blood and urine for culture and sensitivity and started her on IV fluid. By the time she arrived here, she has had a 300 mL of urine in her urine bag. The patient herself sometimes gets very confused and disoriented. However, by the time she arrived here, she was more awake, alert and lucid, although she did not believe that she was in the hospital. PAST MEDICAL HISTORY: Significant for stage 4 anal cancer treated with surgery, radiation and most recently palliative chemotherapy. She has also excised skin cancer, anxiety, generalized arthritis and history of acute hypoxic hypercapnic respiratory failure, required intubation and mechanical ventilation. She is also known to have stage 4 anal cancer treated initially with surgery, came with radiation treatment and most recently chemotherapy. PAST SURGICAL HISTORY: Significant for tubal ligation, tonsillectomy and obviously surgical excision of her anal cancer on 03/22/2017. PAST OBSTETRIC HISTORY: She is 2, para 2. ALLERGIES: She is allergic to PENICILLIN that resulted in vaginal yeast infection. FAMILY HISTORY: She has a sister who is 67 with a newly diagnosed brain tumor, anticipating biopsy in April. She has another sister who is in her 80s with prior history of breast cancer. SOCIAL HISTORY: She is . Her from metastatic prostate cancer. She lives with her son. She is a smoker, smoked 1 pack a day for more than 40 years. She denied any significant alcohol use. 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 REVIEW OF SYSTEMS: As per history of present illness. MEDICATIONS: She is currently on following medications: She is on diphenhydramine 25 mg every 8 hours as needed, loratadine 10 mg daily, nicotine 14 mg patch topically daily, ferrous sulfate 325 mg twice a day. She is on OxyContin 10 mg twice a day and oxycodone immediate release 5 mg every 4 hours, acetaminophen 650 mg every 6 hours, Wellbutrin 75 mg daily, mirtazapine 15 mg daily, alprazolam 0.5 mg every 6 hours, buspirone 5 mg 3 times a day, polyethylene glycol 17 grams daily p.r.n. for constipation. She is on Protonix 40 mg daily, phenazopyridine (Pyridium) 100 mg twice a day, oxybutynin chloride 2.5 mg twice a day, ascorbic acid 500 mg twice a day, multivitamin 1 tablet once a day. PHYSICAL EXAMINATION: GENERAL: On arrival to the ICU, she looked pale, cachectic, but no jaundice and cyanosis, no lymphadenopathy, no thyromegaly. No jugular venous distension. No limb edema. VITAL SIGNS: Her heart rate was 104, blood pressure 102/49, temperature was 97.2, respiratory rate was 26 and oxygen saturation was 98% on room air. HEAD, EYES, EARS, NOSE AND THROAT: Showed normocephalic, atraumatic. NECK: Supple. HEART: Showed normal first and second heart sounds with no gallop, rub or murmur. CHEST: Clear to auscultation. No crepitation or rhonchi. ABDOMEN: Distended, soft with a diverting colostomy in the left lower quadrant. There is no tenderness. No guarding or rigidity. No organomegaly. All hernial orifices intact. Bowel sounds normal. NEUROLOGIC: She is awake, alert, but somewhat confused. All her cranial nerves intact. She moves extremities without difficulty. She has an indwelling Miranda catheter. She has recurrent episode of urinary retention with bilateral hydronephrosis requiring bilateral ureteral stent placement. LABORATORY DATA: Her lab work showed a white cell count of 19,200, hemoglobin 7.2, hematocrit 23.7, MCV 92, and platelet count of 633,000 with normal manual differential. Her chemistry showed a serum sodium of 136, potassium 3.8, chloride 98, bicarbonate 25, anion gap of 13, BUN 20, creatinine 1.1, estimated GFR was 48 mL per minute. Her glucose was 97, calcium was 8.9. Total bilirubin, AST, ALT were normal. Alkaline phosphatase was high at 335. Total protein was 6.6, albumin was 2.1. Her blood gases showed a pH of 7.41, pCO2 of 34, pO2 of 78, bicarbonate 22, and oxygen saturation was 96% on room air. Urinalysis showed the urine was alex, turbid with a pH of 5.5, specific gravity of 1.015. There was large amount of protein, glucose, and trace of ketones, moderate amount of blood, positive for nitrite, negative for bilirubin. There was large amount of leukocyte esterase, 3-5 rbc's, 20-40 wbc's and moderate amount of bacteria. Her chest x-ray showed she has minimal cardiomegaly and left-sided Port-A-Cath is unchanged. The costophrenic sulci are clear, well demarcated, mild prominent bilateral interstitial lung markings, likely chronic interstitial changes again identified. The patient was admitted with acute altered mental status and normochromic normocytic anemia, leukocytosis and urinary tract infection. Given that she is allergic to PENICILLIN, we will start her on meropenem with the urine is the most likely reason for her leukocytosis. She also has bilateral hydronephrosis and bilateral ureteral stent deployment. She has a Port-A-Cath possible source of infection. I will add also vancomycin to complete the picture. We have already sent blood for culture and sensitivity and if blood culture remains negative, we can discontinue vancomycin. DINO KAUR MD DR: JESSEE/brianna JOB#: [id number] / [id number]
--- NOTE | 2019-03-20 13:07 | NUR ---
INFUSION COMPLETED, REPEAT H&H OBTAINED.
[2019-03-20 13:19] LABS: HEMATOCRIT 25.3 % (36.0-47.0)
--- NOTE | 2019-03-20 15:00 | NUR ---
Spoke with son in regards to discharge plan, plan is return to [place] for rehab. PT continues to be in generalized pain, prn medication given as directed. Pt continues to be sleepy throughout day and confused but appears this is baseline.
[2019-03-20] MEDS: VANCOMYCIN PER PHARMACY MC PRN (15:05)
--- NOTE | 2019-03-20 15:05 | NUR ---
Pharmacy Vancomycin Dosing Note S:Consulted to monitor and dose vancomycin started . O:PETRONA FANG is a 79 year old F with Bacteremia, . Height: 4 feet, 10.5 inches Weight: 33.762672 kg [place] Body Weight: Adjusted Body Weight: Dosing Weight: Actual Other Antibiotics: MEROPENEM 1GRAM Q12HRS LABS: Last BUN: 17 Last Creatinine: 1.1 Creatinine Clearance: Last WBC: 21.3 Last Procalcitonin: Tmax (past 24 hours): Microbiology: I/O: Drug Levels: Last level: on at Last dose given 03/20/19 at 1300 Vancomycin Dosing: Loading Dose: 1000 mg x1 Dosing Weight: Actual Target Trough: 15-20 A: Based on: P: 1. Begin Vancomycin 500 mg IV q48h 2. Follow up Trough level on 03/24/19 at 1230 3. Pharmacy will continue to monitor, follow and adjust therapy as needed. ROSA ISELA MA [facility], 03/20/19 [id number]
[2019-03-20] MEDS: ALPRAZolam 0.5 MG TABLET PO PRN (22:11)
[2019-03-21] VITALS (15 sets, daily range): BP systolic 111–151; BP diastolic 54–76
[2019-03-21] MEDS: oxyCODONE IR 5 MG TABLET PO PRN ×5 (04:14→20:41)
[2019-03-21] MEDS: ALPRAZolam 0.5 MG TABLET PO PRN ×4 (04:14→20:40)
--- NOTE | 2019-03-21 05:40 | NUR ---
Pt has been very restless this shift. Pt has generalized pain complaints and anxiousness. PRN pain and anxiety meds given per orders.
[2019-03-21 06:27] LABS: HEMATOCRIT 24.5 % (36.0-47.0); HEMOGLOBIN 7.6 g/dL (12.0-15.5); RED BLOOD COUNT 2.65 x10^6/uL (3.50-5.40); RED CELL DISTRIBUTION WIDTH 19.5 % (11.5-14.5); WHITE BLOOD COUNT 19.7 x10^3/uL (4.0-11.0)
[2019-03-21 06:31] LABS: CALCIUM 8.1 mg/dL (8.5-10.1); CREATININE 0.8 mg/dL (0.6-1.0); GFR 69.6; POTASSIUM 4.4 mmol/L (3.5-5.1)
[2019-03-21] MEDS ORDERED: ONDANSETRON PF 4 MG/2 ML VIAL. IV PRN (07:45)
[2019-03-21] MEDS: MEROPENEM 1 GM in IV NORMAL SALINE 100ML 100 ML IV SCH ×2 (08:26→20:41)
[2019-03-21] MEDS: VANCOMYCIN PER PHARMACY MC PRN (08:55)
--- NOTE | 2019-03-21 08:55 | NUR ---
Pharmacy Vancomycin Dosing Note S:Consulted to monitor and dose vancomycin started 03/20/19. O:PETRONA FANG is a 79 year old F with Bacteremia Height: 4 feet, 10.5 inches Weight: 33.817194 kg [place] Body Weight: 42.05 Adjusted Body Weight: 38.59 Dosing Weight: Actual Other Antibiotics: MEROPENEM 1GRAM Q12HRS LABS: Last BUN: 16 Last Creatinine: 0.8 Creatinine Clearance: 25 Last WBC: 19.7 Vancomycin Dosing: Loading Dose: 1000 mg x1 Dosing Weight: Actual Target Trough: 15-20 A: The patient's renal function has improved, so the dosing interval has been increased to q24hrs. P: 1. Increase Vancomycin 500mg IV to q24h 2. Follow up Trough level on 03/22/19 at 1230 3. Pharmacy will continue to monitor, follow and adjust therapy as needed. [facility] 03/21/19 [id number]
[2019-03-21] MEDS: LACTOBACILLUS RHAMNOSUS GG 1 CAPSULE. PO SCH ×2 (10:17→20:40)
[2019-03-21] MEDS: oxyCODONE ER 10 MG TAB.ER.12H PO SCH ×2 (10:17→20:40)
--- NOTE | 2019-03-21 11:00 | NUR ---
Pt c/o pain to legs bilaterally from osteoarthritis, ankles and thighs. Lidocaine patches applied. WCTM. Doyle Baez RN
[2019-03-21] MEDS: POTASSIUM CL 20MEQ IN 0.9%NACL 1,000 ML IV SCH (11:29)
[2019-03-21] MEDS: LIDOCAINE (700MG/PATCH) PATCH. TD SCH (11:56)
[2019-03-21] MEDS ORDERED: IOHEXOL 240 MG/ML 50ML VIAL. ONE (12:45)
[2019-03-21] MEDS: VANCOMYCIN 500 MG in IV NORMAL SALINE 100ML 100 ML IV SCH (13:08)
--- NOTE | 2019-03-21 16:40 | RAD ---
EXAM: CT Abdomen and Pelvis without IV contrast CLINICAL HISTORY: Persistent leukocytosis, bilateral ureteral stents. Hydronephrosis.. COMPARISON: CT 01/04/2019, 11/01/2018 TECHNIQUE: Helical CT of the abdomen and pelvis without intravenous contrast. Axial, coronal and sagittal reformatted images were generated. PQRS compliance statement - One or more of the following individualized dose reduction techniques were utilized for this study: 1. Automated exposure control 2. Adjustment of the mA and/or kV according to patient size 3. Use of iterative reconstruction technique FINDINGS: Lack of intravenous contrast limits evaluation of solid organs, vasculature, and lymph nodes. Lower chest: Small bilateral pleural effusions. Linear and groundglass opacities in the lower lobes likely scarring/atelectasis. Trace pericardial effusion. Coronary artery and aortic root calcifications are seen. Abdomen and Pelvis: Evaluation of solid organs is very limited given lack of visceral fat and IV contrast. No obvious liver lesion. Calcified gallstone is seen within the gallbladder. Spleen is unremarkable. Adrenal glands are not delineated. Visualized portions of pancreas are grossly unremarkable. Moderate to severe bilateral hydronephrosis with bilateral ureteral stents, pigtails terminate within the renal pelvis and bladder bilaterally. Fat infiltration seen about the kidneys bilaterally. The small and large bowel appear matted together, in general grossly unremarkable although evaluation is significantly limited. No evidence of bowel obstruction. An omental mass adjacent to the ostomy in the left lower quadrant measures approximately 4.9 x 3.8 cm, previously 4.2 x 3 cm. In addition the large presacral mass causing mass effect on the bladder/rectum and invading the left gluteus musculature measures approximately 8.9 x 6.9 cm, previously 8.4 x 5.2 cm. Within the constraints of noncontrast examination, no discrete loculated fluid collection is identified. Small volume abdominal and pelvic ascites. Bones: Osseous structures are grossly stable. Degenerative changes of the spine are seen. IMPRESSION: 1. No obvious loculated abdominal or pelvic collection is seen. 2. Moderate to severe bilateral hydronephrosis is seen, although ureteral stents are identified. However there is perinephric fat infiltration and edematous appearance of the kidneys, superimposed infection is suspected. 3. The presacral and omental masses are poorly delineated on this noncontrast exam however appear mildly increased in size. 4. Abdominal and pelvic ascites. Electronically signed by: Harley Giang MD (03/21/2019 4:37 PM) [facility]
--- NOTE | 2019-03-21 19:00 | NUR ---
Shift review Upon initial assessment, pt was in pain. Pain meds were provided as soon as available, but although pain meds were given as frequently as ordered and pt slept occasionally after administration, pain was not adequately controlled during shift despite the addition of Lidocaine patches for pain in legs. Medications are being modified after discussion with physician to better control pt's pain. Pt did not eat much during shift. 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 Pt had several visitors: her turn laster, two friends from [employer], her son Derik and her brother. This RN spoke with Derik concerning pt's desire to be placed on hospice. We discussed what care would be provided on hospice, and clarified that tube feedings and parenteral nutrition were not performed on hospice. Derik stated that he would talk to his brother. Pt ate a portion of hamburger and some fruit salad when her brother visited around dinnertime, the most food she ate during the day. WCTM. Doyle Baez RN
[2019-03-21] MEDS ORDERED: PANTOPRAZOLE IV 40 MG VIAL. IVP ONE (19:30)
--- NOTE | 2019-03-21 19:30 | NUR ---
Spoke with Dr. Garcia regarding pt's pain and anxiety medications. They are not controlling her pain for very long. Received orders to increase oxycodone to 10mg [id number] prn and increase Xanax to 1mg [id number] prn. Dr. Garcia also gave orders for pt to be downgraded from ICU status to telemetry status. Pt is requesting to go under hospice care, however we are waiting on her son, who is her DPOA.
[2019-03-21] MEDS ORDERED: PATCH REMOVAL. MC SCH (21:00)
[2019-03-22 00:01] VITALS: BP 108/56
[2019-03-22] MEDS: POTASSIUM CL 20MEQ IN 0.9%NACL 1,000 ML IV SCH ×2 (01:02→12:25)
[2019-03-22] MEDS: oxyCODONE IR 5 MG TABLET PO PRN (03:30)
--- NOTE | 2019-03-22 03:38 | PN ---
DATE: 03/21/2019 SUBJECTIVE: The patient is resting slightly propped up in bed, no apparent distress. Denied any complaint; however, the nursing staff stated that she has no motivation, but does not participate with physical therapy. We have had discussion with her regarding the goals of care and she obviously wanted to go home without the Miranda catheter. Unfortunately, multiple attempts were made and the patient has eventually retained urine and required indwelling Miranda catheter. She was seen by the urologist at [facility] and had a cystoscopy, Botox injection, and bilateral ureteral stent placement for bilateral hydronephrosis. LABORATORY DATA: Her H and H, she received 1 unit of packed RBCs and her hemoglobin and hematocrit are drifting down from 8 and 25 to 7.6 and 24. Her stool for occult blood was positive; however, her nasal screen for MRSA PCR was negative. Her urinalysis showed that she has large amount of leukocyte esterase, 20-40 wbc's, and moderate amount of bacteria; however, her urine culture showed mixed urogenital rodolfo with greater than 100,000 colony forming units per mL. Her blood culture is still pending at the time of this dictation. PHYSICAL EXAMINATION: GENERAL: When I examined her this afternoon; she was pale and cachectic, but no jaundice, cyanosis, or thyromegaly. No jugular venous distension. No limb edema. VITAL SIGNS: Her heart rate was 105, blood pressure was 122/67, temperature was 99.6, respiratory rate was 32, and oxygen saturation was 92% on room air. HEAD, EYES, EARS, NOSE, AND THROAT: Showed normocephalic, atraumatic. NECK: Supple. HEART: Showed normal first and second heart sounds. No gallop, rub, or murmur. CHEST: Clear to auscultation. No crepitation or rhonchi. ABDOMEN: Distended, soft, nontender with a colostomy in the left lower quadrant. There is no guarding or rigidity. No organomegaly. All hernial orifices intact. Bowel sounds normal. NEUROLOGIC: She is awake, alert, responding appropriately. All cranial nerves are intact. She moves extremities without difficulty. She has an indwelling Miranda catheter. Her intake over the last 24 hours was 1700, output was 950. LABORATORY DATA: Her lab work as of this morning showed a white cell count continued to be high at 19,700, hemoglobin was 7.6, hematocrit 24.5, MCV 93, and platelet count of 501,000. Her chemistry showed a serum sodium 135, potassium 4.4, chloride 104, bicarbonate 24, anion gap of 7, BUN 16, creatinine was 0.8, estimated GFR was 69 mL per minute. Her glucose 115, calcium was 8.1. Her total protein was 6.3, albumin was 1.7. ASSESSMENT AND PLAN: 1. Anemia, likely due to blood loss on top of anemia of chronic kidney disease. 2. Urine retention with bilateral hydronephrosis, status post bilateral ureteral stent placement. 3. The patient is known to have chronic obstructive pulmonary disease. 4. Stage IV renal cell carcinoma with metastasis to the peritoneum, bones, and the patient was treated with a surgical resection, radiation therapy, and palliative chemotherapy. My plan is to repeat her CT scan of the abdomen and pelvis with oral contrast and we have had a discussion with the patient and we will arrange for a meeting with her son to discuss the option of hospice care. DINO KAUR MD DR: JESSEE/brianna JOB#: [id number] / [id number]
[2019-03-22 04:00] VITALS: BP 115/64
--- NOTE | 2019-03-22 05:29 | NUR ---
Pt has been able to rest most of the night, with the increased dose of oxycodone and xanax. She has only needed 2 doses of oxycodone this shift and 1 dose of xanax. Pt is currently resting comfortably.
[2019-03-22] MEDS ORDERED: PANTOPRAZOLE IV 40 MG VIAL. IVP SCH (07:30)
--- NOTE | 2019-03-22 07:42 | NUR ---
Patient is sleeping, appears comfortable in bed. It was given in report to this RN that patient wishes to be on hospice. Pts heart rate currently 117, RR 27. RN will not wake patient for morning meds, full assessment or to eat. When patient wakes RN will provide full care, manage pain and provide meal to patient. For now will allow patient to rest. Will continue to monitor.
[2019-03-22 08:30] VITALS: BP 104/58
[2019-03-22] MEDS: oxyCODONE ER 10 MG TAB.ER.12H PO SCH (08:47)
[2019-03-22] MEDS: LACTOBACILLUS RHAMNOSUS GG 1 CAPSULE. PO SCH (08:47)
[2019-03-22] MEDS: ALPRAZolam 0.5 MG TABLET PO PRN (08:48)
[2019-03-22] MEDS: LIDOCAINE (700MG/PATCH) PATCH. TD SCH (08:49)
[2019-03-22] MEDS: MEROPENEM 1 GM in IV NORMAL SALINE 100ML 100 ML IV SCH (08:56)
--- NOTE | 2019-03-22 09:00 | NUR ---
Pt woke, yelling "momma" repeatedly. Pt states she misses her mom, began crying. Pt writhing in bed, states her biggest complaint is itching, benadryl given. Pt denies need for extra pain medication at this time. Pt does get scheduled oxycontin this morning. Lung sounds crackles throughout. Pts Temp 99.4 axillary. RR 29, HR 111. Pt requested coffee, RN made coffee for patient. Will continue to monitor.
--- NOTE | 2019-03-22 09:29 | NUR ---
Pt spilled coffee in bed, pt cleaned up, new sheets on bed. Pt is now resting comfortably in bed, asleep. Will continue to monitor.
[2019-03-22 12:17] VITALS: BP 95/52
--- NOTE | 2019-03-22 12:21 | NUR ---
Paul here to evaluate patient for inpatient hospice. Pt drowsy, wakes to name but falls back asleep. Pt still appears comfortable as she is sleeping soundly and is not restless. Son is to be here in about an hour to speak with paul and sign forms for patient to be inpatient hospice. Will continue current treatment and keep patient comfortable.
[2019-03-22] MEDS: VANCOMYCIN 500 MG in IV NORMAL SALINE 100ML 100 ML IV SCH (13:00)
[2019-03-22] MEDS ORDERED: VANCOMYCIN 500 MG in IV NORMAL SALINE 100ML 100 ML IV SCH (13:00)
--- NOTE | 2019-03-22 13:55 | NUR ---
Pt discharged from TELE status to be readmitted to Inpatient Hospice. Pt discharged with 22g PIV in L wrist, all belongings remain with pt. Pt in room with two friends from [place] and her tour escort. Doyle Baez RN
--- NOTE | 2019-03-22 18:54 | DS ---
DATE OF DISCHARGE: 03/22/2019 HOSPITAL COURSE: The patient is a 79-year-old female patient who was residing at [facility], who was admitted directly as the nursing staff note that the patient was very lethargic with marked altered status. She was found also with marked leukocytosis. She was also found to be anemic. She also has been very markedly debilitated, cachectic. Her body mass index only 15.9 kilograms square meter. She is known to have stage 4 anal cancer with resultant moderate to severe bilateral hydronephrosis, although ureteral stents are identified; however, there is perinephric fat infiltration and edematous appearance of the kidneys superimposed infection is suspected. She has large presacral and omental masses that are poorly delineated on this nonsignificant contrasted exam. The patient continued to have abdominal pain and we have had a lengthy discussion with her, her son and her brother and eventually the patient agreed to go on hospice and in fact she was evaluated by [facility]. She qualifies for inpatient hospice care. PHYSICAL EXAMINATION: GENERAL: On examining her, she looked well. She was pale, cachectic, but no jaundice, cyanosis or thyromegaly. No jugular venous distention. No limb edema. VITAL SIGNS: Her heart rate was 107, blood pressure was 95/52, temperature was 99.4, respiratory rate was 27 and oxygen saturation was 98%. HEAD, EYES, EARS, NOSE AND THROAT: Normocephalic, atraumatic. NECK: Supple. HEART: Showed normal first and second heart sounds. No gallop, rub or murmur. CHEST: Clear to auscultation. No crepitation or rhonchi. ABDOMEN: Scaphoid, soft with diverting colostomy in the left lower quadrant. NEUROLOGIC: She is very lethargic, but arousable. All her cranial nerves intact. She moves extremities without difficulty, although she has marked muscle wasting and weakness. LABORATORY DATA: Showed a white cell count 19,700, hemoglobin 7.6, hematocrit 24, MCV 93, and platelet count of 501,000. Serum sodium 135, potassium 4.4, chloride 104, bicarbonate 24, anion gap of 7, BUN 16, creatinine 0.8. DISCHARGE MEDICATIONS: The patient was discharged to inpatient hospice care to continue on morphine 4 mg IV every 2 hours, lorazepam 1 mg every 4 hours, diphenhydramine 50 mg every 6 hours and scopolamine 1.5 mg topically q.72 hours. FINAL DISCHARGE DIAGNOSES: Stage 4 anal cancer treated initially with surgery, radiation and most recently palliative chemotherapy. The omental masses and presacral masses are actually larger. She has chronic hypoxic hypercapnic respiratory failure, chronic obstructive pulmonary disease and severe bilateral hydronephrosis. DINO KAUR MD DR: JESSEE/brianna JOB#: [id number] / [id number]
== END 2019-03-22 13:59 | disposition hospice, inpatient (51) | DRG 871 ==
LOC: ICU 15:37
PROVIDERS: ADMIT Internal Medicine; ATTEND Internal Medicine
PROC: 30233N1 Transfusion of Nonautologous Red Blood Cells into Peripheral Vein, Percutaneous Approach (ICD-10-PCS; principal; 2019-03-19)
DX: A41.9 Sepsis, unspecified organism (principal); E43 Unspecified severe protein-calorie malnutrition; N13.6 Pyonephrosis; J96.11 Chronic respiratory failure with hypoxia; J96.12 Chronic respiratory failure with hypercapnia; R64 Cachexia; Z68.1 Body mass index [BMI] 19.9 or less, adult; D63.1 Anemia in chronic kidney disease; J44.9 Chronic obstructive pulmonary disease, unspecified; F41.9 Anxiety disorder, unspecified; M13.0 Polyarthritis, unspecified; N18.9 Chronic kidney disease, unspecified; Z51.5 Encounter for palliative care; Z85.048 Personal history of other malignant neoplasm of rectum, rectosigmoid junction, and anus; Z87.891 Personal history of nicotine dependence; Z88.0 Allergy status to penicillin; Z85.828 Personal history of other malignant neoplasm of skin
CPT/HCPCS: 36415; 36600; 71045; 74176; 80048; 80053; 81001; 82274; 82803; 83605; 85007; 85014; 85018; 85025; 85027; 86850; 86900; 86901; 86920; 87040; 87086; 87641; C9113; J2185; J2405; J3370; J7050; P9016; Q0163

== ENCOUNTER 2019-03-22 14:04 | Inpatient (IN) | payer MEDICARE, OTHER ==
[~2019-03-22] VITALS: Ht 148.6 cm; Wt 34.9 kg
[~2019-03-22 14:04] MED LIST: ACET325T9 PO; ALPR0.5T PO; ASCO500C9 PO; BUPR100T7 PO; BUSP5TAB PO; DIPH25CA58 PO; FERR325T14 PO; LORA10TA3 PO; MIRT15TA PO; MULT1POW2 PO; NICO1PAT25 TP; OXYB5TAB7 PO; OXYC10TA PO; OXYC10TA57 PO; PANT40TA3 PO; PHEN100T82 PO; POLY17PO5 PO
[2019-03-22] MEDS ORDERED: diphenhydrAMINE 50 MG/ML VIAL IVP PRN (14:15)
[2019-03-22] MEDS ORDERED: ACETAMINOPHEN 650 MG SUPP.RECT. PR PRN (14:15)
[2019-03-22] MEDS: MORPHINE SULFATE 4 MG/ML DISP.SYRIN. IV PRN ×3 (14:40→18:41)
[2019-03-22 15:17] VITALS: BP 94/52
[2019-03-22] MEDS: SCOPOLAMINE 1.5MG PATCH. TD SCH (16:08)
--- NOTE | 2019-03-23 01:42 | DS ---
DATE OF DISCHARGE: 03/22/2019 HISTORY OF PRESENT ILLNESS: The patient is a 79-year-old female patient who basically was admitted from [facility] DINO KAUR MD DR: JESSEE/brianna JOB#: [id number] / [id number]
[2019-03-23] MEDS: MORPHINE SULFATE 4 MG/ML DISP.SYRIN. IV PRN ×3 (02:34→06:34)
[2019-03-23] MEDS: MORPHINE SULFATE 4 MG/ML DISP.SYRIN. IV SCH ×8 (08:24→22:07)
[2019-03-23 11:03] VITALS: BP 94/57
--- NOTE | 2019-03-23 14:35 | PN ---
DATE: SUBJECTIVE: The patient is a 79-year-old female patient who was admitted yesterday to inpatient hospice for end of life care. She has multitude of medical problems including stage 4 anal cancer, metastasis to the bone and the abdominal cavity, chronic obstructive pulmonary disease, severe bilateral hydronephrosis and anemia. She opted for comfort and she is now on morphine, Ativan, scopolamine. PHYSICAL EXAMINATION: GENERAL: When I saw her this morning, she was resting slightly propped up, in no apparent distress. She was pale, cachectic, no jaundice, cyanosis, or thyromegaly. No jugular venous distension. No lower limb edema. VITAL SIGNS: Her heart rate was 100, blood pressure 94/57, temperature was 98, respiratory rate 20, and oxygen saturation was 97%. HEAD, EYES, EARS, NOSE AND THROAT: Showed normocephalic, atraumatic. NECK: Supple. HEART: Showed normal first and second heart sounds with no gallop or murmur. CHEST: Clear to auscultation. No crepitation or rhonchi. ABDOMEN: Scaphoid, soft with diverting colostomy in the left lower quadrant. No guarding or rigidity. No organomegaly. All hernial orifice intact. Bowel sounds normal. NEUROLOGIC: She is very lethargic, arousable. ASSESSMENT AND PLAN: Stage 4 anal cancer with multiple distant metastases, currently on hospice for end of life care. We will continue with IV morphine, Ativan, scopolamine, diphenhydramine. DINO KAUR MD DR: JESSEE/brianna JOB#: [id number] / [id number]
[2019-03-24] MEDS: MORPHINE SULFATE 4 MG/ML DISP.SYRIN. IV SCH ×12 (00:03→22:33)
--- NOTE | 2019-03-24 12:12 | PN ---
DATE: 03/24/2019 SUBJECTIVE: The patient is resting, slightly propped up, sleeping comfortably. She only moans and groans when the nursing staff changes her position but otherwise seems to be very comfortable. Her respiratory rate was 16, maintaining her oxygen saturation at 92% on 2 liters of oxygen. OBJECTIVE: GENERAL: On examining her, she looked well, pale, cachectic, but no jaundice, cyanosis, or thyromegaly. No jugular venous distension. No lower limb edema. ASSESSMENT AND PLAN: Stage 4 anal cancer and multiple distant metastases, currently on hospice for end of life care. Plan is to continue the IV morphine, Ativan, scopolamine, and diphenhydramine. DINO KAUR MD DR: JESSEE/brianna JOB#: [id number] / [id number]
[2019-03-25] MEDS: MORPHINE SULFATE 4 MG/ML DISP.SYRIN. IV SCH ×12 (00:27→22:03)
[2019-03-25] MEDS: SCOPOLAMINE 1.5MG PATCH. TD SCH (07:55)
[2019-03-25 19:35] VITALS: BP 104/62
[2019-03-26] MEDS: MORPHINE SULFATE 4 MG/ML DISP.SYRIN. IV SCH ×6 (00:04→10:00)
--- NOTE | 2019-03-26 01:33 | PN ---
DATE: 03/25/2019 SUBJECTIVE: The patient is resting, slightly propped up in bed, continues to be extremely lethargic; however, she continued to moan and groan whenever she changes her position. OBJECTIVE: GENERAL: When I examined her, she looked pale, extremely cachectic, no jaundice, cyanosis, or thyromegaly. No jugular venous distension. No lower limb edema. VITAL SIGNS: Her respiratory rate was 18 and oxygen saturation was 92%. The rest of the exam is stable. ASSESSMENT: Stage 4 anal carcinoma distant metastasis to the bone and peritoneal cavity, chronic obstructive pulmonary disease, severe bilateral hydronephrosis and bladder outlet obstruction. PLAN: To increase the dose and frequency of IV morphine as well as lorazepam to keep the patient comfortable. DINO KAUR MD DR: JESSEE/brianna JOB#: [id number] / [id number]
[2019-03-26 05:40] VITALS: BP 105/59
[2019-03-26 08:55] VITALS: BP 117/57
[2019-03-26] MEDS ORDERED: LORazepam INTENSOL 2 MG/ML BOTTLE SL PRN (11:30)
[2019-03-26] MEDS ORDERED: MORPHINE SULFATE 20 MG/ML CONC SOLUTION. SL PRN (11:30)
[2019-03-26] MEDS: MORPHINE SULFATE 20 MG/ML CONC SOLUTION. SL PRN ×4 (12:03→20:42)
[2019-03-26] MEDS: LORazepam INTENSOL 2 MG/ML BOTTLE SL PRN ×4 (13:21→20:41)
[2019-03-26] MEDS ORDERED: ATROPINE 1% OPHTH SOLUTION 5ML BOTTLE. SL PRN (19:00)
[2019-03-26] MEDS: ATROPINE 1% OPHTH SOLUTION 5ML BOTTLE. SL SCH ×2 (19:04→20:41)
--- NOTE | 2019-03-26 23:39 | PN ---
DATE: 03/26/2019 SUBJECTIVE: The patient is resting slightly propped up in bed, continued to be somewhat tachypneic, though generally lethargic. We did increase her dose and frequency. She is now on morphine sulfate, Roxanol 20 mg every 2 hours as needed and lorazepam 2 mg every 2 hours, together with scopolamine and diphenhydramine as needed. OBJECTIVE: GENERAL: On examining her, she was pale, extremely cachectic, no jaundice or cyanosis. NECK: No thyromegaly. No jugular venous distension. EXTREMITIES: No limb edema. The rest of clinical exam seems to be stable, has not changed. ASSESSMENT: 1. Stage 4 anal carcinoma with distant metastases to bone and peritoneal cavity. 2. Chronic obstructive pulmonary disease. 3. Severe bilateral hydronephrosis with bladder outlet obstruction. PLAN: To continue with more oral Roxanol and Ativan as well as scopolamine, diphenhydramine and Tylenol if needed. DINO KAUR MD DR: JESSEE/brianna JOB#: [id number] / [id number]
[2019-03-27] MEDS: ATROPINE 1% OPHTH SOLUTION 5ML BOTTLE. SL SCH ×6 (00:35→15:02)
[2019-03-27] MEDS: MORPHINE SULFATE 20 MG/ML CONC SOLUTION. SL PRN ×8 (00:35→13:54)
[2019-03-27] MEDS: LORazepam INTENSOL 2 MG/ML BOTTLE SL PRN ×8 (01:06→13:54)
[2019-03-27 05:00] VITALS: BP 129/74
[2019-03-27] MEDS ORDERED: LORazepam INTENSOL 2 MG/ML BOTTLE SL SCH (15:00)
[2019-03-27] MEDS ORDERED: MORPHINE SULFATE 20 MG/ML CONC SOLUTION. SL SCH (15:00)
--- NOTE | 2019-03-28 05:20 | PN ---
DATE: SUBJECTIVE: The patient is resting slightly propped up in bed. She is in no apparent distress. She is somewhat tachypneic and tachycardic. PHYSICAL EXAMINATION: VITAL SIGNS: Her heart rate was 142, blood pressure 129/74, temperature was 99.9, respiratory rate 24, and oxygen saturation was 81% on room air. HEAD, EYES, EARS, NOSE AND THROAT: Showed normocephalic, atraumatic. NECK: Supple. HEART: Showed normal first and second heart sounds with no gallop, rub or murmur. CHEST: Clear to auscultation. No crepitation or rhonchi. ABDOMEN: Scaphoid. Soft with diverting colostomy. She has an indwelling Miranda catheter. NEUROLOGIC: She is encephalopathic, somewhat tachypneic. ASSESSMENT: 1. Stage IV anal carcinoma with distant metastases to bone and peritoneal cavity. 2. Chronic obstructive pulmonary disease. 3. Severe bilateral hydronephrosis, bilateral outlet obstruction, status post cystoscopy, Botox injection, and bilateral stent deployment. PLAN: Plan is to increase the morphine to 20 mg every hour, lorazepam 2 mg hourly, and give the atropine sulfate 1 drop every 3 hours as well as scopolamine patch and diphenhydramine as well as acetaminophen. DINO KAUR MD DR: JESSEE/brianna JOB#: [id number] / [id number]
--- NOTE | 2019-04-06 14:27 | DS ---
DATE OF DISCHARGE: 03/27/2019 SUMMARY HOSPITAL COURSE: The patient is a 79-year-old who was admitted as a direct admission from [facility] as she has marked leukocytosis, anemia, and generalized weakness. We did start her on IV antibiotic and IV fluid. Unfortunately, she continued to have severe abdominal pain and she is known to have stage [address] scan of the abdomen and pelvis showed that the patient has [id number] bilateral hydronephrosis with bilateral ureteral stents, pigtail terminates within the renal pelvis and bladder bilaterally. She has also small and large bowel appears matted together generally grossly unremarkable, although evaluation is significantly limited. Although there was no evidence of bowel obstruction, an omental mass adjacent to the ostomy in the left lower quadrant measures approximately 4.9 x 3.8, previously was 4.2 x 3. In addition, there is a large presacral mass causing mass effect on the bladder, rectum and involving the left gluteus musculature measuring up to 8.9 x 6.9. As the patient continued to have severe pain and we have had a lengthy discussion with her and her family, decision was made to discontinue all aggressive forms of treatment and was admitted for comfort and hospice care. She was started on morphine, Ativan and Roxanol and she basically gradually deteriorated and eventually at around 4:00 in the afternoon of 03/27/2019, patient started having bradycardia and eventually the patient has asystole. She has no spontaneous breathing, no palpable pulsation, or audible heart sound, the patient was pronounced . The cause of includes acute cardiopulmonary arrest, acute respiratory failure, aspiration pneumonia, and stage 4 anal carcinoma with metastasis. DINO KAUR MD DR: JESSEE/brianna JOB#: [id number] / [id number]
== END 2019-03-27 19:02 | disposition expired | DRG 374 ==
LOC: ICU 14:04 → 1 SOUTH 03-23 06:45
PROVIDERS: ADMIT Internal Medicine; ATTEND Internal Medicine
DX: C21.0 Malignant neoplasm of anus, unspecified (principal); J96.00 Acute respiratory failure, unspecified whether with hypoxia or hypercapnia; J69.0 Pneumonitis due to inhalation of food and vomit; N13.30 Unspecified hydronephrosis; C79.51 Secondary malignant neoplasm of bone; J44.9 Chronic obstructive pulmonary disease, unspecified; D64.9 Anemia, unspecified; N32.0 Bladder-neck obstruction; Z51.5 Encounter for palliative care; I46.9 Cardiac arrest, cause unspecified; Z66 Do not resuscitate; Z79.899 Other long term (current) drug therapy; Z88.0 Allergy status to penicillin
CPT/HCPCS: J1200; J2060; J2270; Q5005